=== PATIENT | female | born 1955 | race Caucasian/White ===

== ENCOUNTER 2017-08-27 07:59 | Outpatient (CLI) | payer BC ==
[2017-08-27 12:34] LABS: ALBUMIN 4.5 g/dL (3.2-5.5); ALBUMIN/GLOBULIN RATIO 1.4 (1.0-2.2); ALKALINE PHOSPHATASE 67 IU/L (42-121); ALT ALANINE AMINOTRANSFERASE 37 IU/L (10-60); AST ASPARTATE AMINOTRANSFERASE 31 IU/L (10-42); BILIRUBIN,TOTAL 0.7 mg/dL (0.2-1.0); BUN - BLOOD UREA NITROGEN 15 mg/dL (6-20); CALCIUM 9.3 mg/dL (8.5-10.3); CARBON DIOXIDE - CO2 26 mmol/L (21-32); CHLORIDE 104 mmol/L (101-111); CHOL/HDL RATIO 3.7 (<4.4); CHOLESTEROL 150 mg/dL; CREATININE 0.7 mg/dL (0.4-1.0); GFR - MDRD 85 (>89); GLUCOSE 100 mg/dL (70-100); HDL CHOLESTEROL 41 mg/dL; LDL CHOLESTEROL,CALCULATED 71 mg/dL; LDL/HDL RATIO 1.7 (<4.4); SODIUM 138 mmol/L (135-145); TOTAL PROTEIN 7.7 g/dL (6.7-8.2); VLDL CHOLESTEROL 38 mg/dL
== END 2017-08-27 08:00 | disposition home or self-care (01) ==
LOC: LAB.F 07:59
PROVIDERS: ATTEND Physician Assistant
DX: E78.5 Hyperlipidemia, unspecified (principal)
CPT/HCPCS: 36415; 80053; 80061; 83721

== ENCOUNTER 2018-04-24 09:10 | Outpatient (CLI) | payer BC ==
--- NOTE | 2018-04-24 17:10 | XRAY Report ---
Reason: CERVIGALIA Procedure Date: 04/24/2018 Accession Number: [id number] / [id number] Procedure: XR - Cervical Spine 2 View CPT Code: FULL RESULT: EXAM: CERVICAL SPINE RADIOGRAPHY EXAM DATE: 04/24/2018 10:25 AM. CLINICAL HISTORY: Cervicalgia. History of surgery. Posterior right neck pain. COMPARISONS: None. TECHNIQUE: 3 views. FINDINGS: Alignment: Normal. No spondylolisthesis or scoliosis. Bones: The cervical vertebral bodies and posterior elements are well visualized from the skull base through C7-T1. No fractures or bone lesions. Degenerative changes: Mild to moderate C5-C6 disk height loss. Minimal degenerative changes involving other disk levels. Moderate mid cervical right-sided facet DJD. Soft Tissues: Normal. No prevertebral soft tissue swelling. The visualized lung apices are clear. IMPRESSION: 1. Mild to moderate C5-C6 disk height loss. 2. Moderate mid cervical right-sided facet DJD. [facility]
--- NOTE | 2018-04-24 17:10 | XRAY Report ---
Reason: SPECIFIED ARTHRITIS LEFT HAND Procedure Date: 04/24/2018 Accession Number: [id number] / [id number] Procedure: XR - Hand 3 View LT CPT Code: FULL RESULT: EXAM: BILATERAL HAND RADIOGRAPHY EXAM DATE: 04/24/2018 10:25 AM. CLINICAL HISTORY: Specified arthritis. Bilateral hand pain. COMPARISON: HAND 3 VIEW LT 04/24/2018 10:05 AM. TECHNIQUE: 3 views of each hand. FINDINGS: Bones: Normal. No fractures or bone lesions. Joints: Mild left thumb IP joint degenerative changes. No other significant arthritic changes seen. No subluxations. Soft Tissues: Normal. No soft tissue swelling. IMPRESSION: 1. Mild left thumb IP joint degenerative changes. 2. Otherwise negative bilateral hand radiography. [facility]
--- NOTE | 2018-04-26 06:04 | XRAY Report ---
Reason: SPECIFIED ARTHRITIS Procedure Date: 04/24/2018 Accession Number: [id number] / [id number] Procedure: XR - Hand 3 View RT CPT Code: FULL RESULT: EXAM: BILATERAL HAND RADIOGRAPHY EXAM DATE: 04/24/2018 10:25 AM. CLINICAL HISTORY: Specified arthritis. Bilateral hand pain. COMPARISON: HAND 3 VIEW LT 04/24/2018 10:05 AM. TECHNIQUE: 3 views of each hand. FINDINGS: Bones: Normal. No fractures or bone lesions. Joints: Mild left thumb IP joint degenerative changes. No other significant arthritic changes seen. No subluxations. Soft Tissues: Normal. No soft tissue swelling. IMPRESSION: 1. Mild left thumb IP joint degenerative changes. 2. Otherwise negative bilateral hand radiography. [facility]
== END 2018-04-24 09:11 | disposition home or self-care (01) ==
LOC: DI 09:10
PROVIDERS: ATTEND Physician Assistant
DX: M19.042 Primary osteoarthritis, left hand (principal); M47.812 Spondylosis without myelopathy or radiculopathy, cervical region
CPT/HCPCS: 72040

== ENCOUNTER 2018-06-03 14:54 | Outpatient (CLI) | payer BC ==
--- NOTE | 2018-06-04 14:00 | CT Report ---
Reason: LUNG CANCER SCREENING Procedure Date: 06/03/2018 Accession Number: [id number] / [id number] Procedure: CT - Low Dose Lung Cancer Screen CPT Code: FULL RESULT: EXAM CT LUNG SCREEN EXAM DATE: 06/03/2018 03:08 PM. HISTORY: 62-year-old patient with [id number] smoking history. Currently smoking: No. Years since quittin years ago. COMPARISON: CHEST ANGIO 04/04/2014 9:05 PM. TECHNIQUE: CT examination of the entire thorax without contrast was performed using low-dose technique. Thin section coronal, axial, sagittal and MIP axial images were obtained. In accordance with CT protocol optimization, one or more of the following dose reduction techniques were utilized for this exam: automated exposure control, adjustment of mA and/or KV based on patient size, or use of iterative reconstructive technique. FINDINGS: Nodules: Right upper lobe: None. Right middle lobe: None. Right lower lobe: None. Left upper lobe: None. Left lower lobe: None. Emphysema: None. Pleura: Unremarkable. Aorta: There is atherosclerosis of the aorta without evidence of aneurysmal dilatation. Mediastinum: Unremarkable. Coronary calcifications: None detected. Other pulmonary findings: None. Other extrapulmonary findings: None. IMPRESSION: Lung-RADS ASSESSMENT CATEGORY: 1 - negative Probability of malignancy: Less than 1% Atherosclerosis of the aorta. RECOMMENDATION: Recommend annual screening with low-dose CT. [facility]
== END 2018-06-03 14:55 | disposition home or self-care (01) ==
LOC: DI 14:54
PROVIDERS: ATTEND Physician Assistant
DX: Z12.2 Encounter for screening for malignant neoplasm of respiratory organs (principal); I70.0 Atherosclerosis of aorta; Z87.891 Personal history of nicotine dependence

== ENCOUNTER 2018-06-03 14:55 | Outpatient (CLI) | payer BC ==
--- NOTE | 2018-06-04 08:31 | Mammography Report ---
Reason: SCREENING MAMMO Procedure Date: 06/03/2018 Accession Number: [id number] / [id number] Procedure: [facility] - Screening Mammo w/Derrek CPT Code: FULL RESULT: EXAM: Screening Mammo w/Derrek DATE: 06/03/2018 3:50 PM CLINICAL HISTORY: Screening encounter. History of early menses. TECHNIQUE: Bilateral CC and MLO views were obtained. COMPARISON: 06/01/2011. FINDINGS: The breasts demonstrate scattered fibroglandular densities bilaterally. No suspicious masses, clustered microcalcifications, or regions of architectural distortion are identified. IMPRESSION: Negative examination RECOMMENDATION: Routine annual screening unless otherwise clinically indicated. BIRADS CATEGORY 1: Negative STANDARD QUALIFYING STATEMENTS: 1. This examination was not reviewed with the aid of Computer-Aided Detection (CAD). 2. A negative or benign imaging report should not delay biopsy if clinically suspicious findings are present. Consider surgical consultation if warrented. More than 5% of cancers are not identified by imaging. 3. Dense breasts may obscure an underlying neoplasm. 4. This examination was reviewed with the aid of 3D breast imaging (tomosynthesis).
== END 2018-06-03 14:56 | disposition home or self-care (01) ==
LOC: DI 14:55
PROVIDERS: ATTEND Physician Assistant
DX: Z12.31 Encounter for screening mammogram for malignant neoplasm of breast (principal)
CPT/HCPCS: 77063; 77067